=== PATIENT | male | born 1985 | race Caucasian/White ===

== ENCOUNTER 2017-09-18 19:48 | Emergency (ER) | payer SELFPAY ==
[~2017-09-18] VITALS: Ht 188 cm; Wt 90.4 kg
[2017-09-18 20:13] VITALS: BP 153/83
--- NOTE | 2017-09-18 20:17 | NUR ---
LABS ORDERED, URINE SAMPLE COLLECTED. PT RETURNED TO LOBBY
--- NOTE | 2017-09-18 20:34 | NUR ---
pt to ER bed 9
--- NOTE | 2017-09-18 20:35 | NUR ---
32/M CAME IN WITH FAMILY/FRIEND, C/O 11/17 ABD PAIN, X1 DAY. PT REPORTS N/V. PT REPORTS SUBJECTIVE FEVER, AFEBRILE AT THIS TIME. PT REPORTS CHILLS AND BODY ACHES. LBM TODAY, DENIES DIARRHEA; PT SLIGHTLY DIAPHORETIC, SKIN IS INTACT, PINK/WARM/DRY; AAOX4, PERRL, WITH EVEN AND STEADY GAIT; LUNGS CLEAR BL, BREATHING UNLABORED; HR EVEN AND REGULAR, BL PERIPHERAL PULSES PRESENT; BS ACTIVE X4, ABD SOFT, ROUND, SLIGHT TENDERNESS TO EPIGASTRIC AREA, DENIES LOWER QUADRANT TENDERNESS; PT DENIES ANY CP, SOB, OR COUGH AT THIS TIME; PATIENT POSITIONED FOR COMFORT; HOB ELEVATED; BEDRAILS UP X2; BED DOWN.
[2017-09-18 20:58] LABS: BASOPHILS % (AUTO) 0.5 % (0.0-2.0); HEMATOCRIT 49.1 % (36-52); HEMOGLOBIN 16.7 g/dL (12.0-18.0); LYMPHOCYTES # (AUTO) 0.4 K/uL (2.0-11.5); LYMPHOCYTES % (AUTO) 4.2 % (20.5-51.1); MEAN CORPUSCULAR HEMOGLOBIN 31 pg (27-31); MEAN CORPUSCULAR HGB CONC 34 g/dL (33-37); MEAN CORPUSCULAR VOLUME 91.2 fL (80-94); MONOCYTES # (AUTO) 0.3 K/uL (0.8-1.0); MONOCYTES % (AUTO) 2.9 % (1.7-9.3); NEUTROPHILS # (AUTO) 8.7 K/uL (1.8-7.7); NEUTROPHILS % (AUTO) 92.4 % (42.2-75.2); PLATELET COUNT (AUTO) 243 K/uL (140-450); RED BLOOD CELL COUNT(AUTO) 5.38 MIL/uL (4.20-6.10); RED CELL DISTRIBUTION WIDTH 13.5 % (11.6-13.7); WHITE BLOOD COUNT (AUTO) 9.4 K/uL (4.8-10.8)
[2017-09-18 21:04] LABS: APPEARANCE,URINE CLEAR (CLEAR); BILIRUBIN,URINE NEGATIVE (NEGATIVE); BLOOD, URINE NEGATIVE (NEGATIVE); COLOR,URINE YELLOW (YELLOW); LEUKOCYTE ESTERASE ,URINE NEGATIVE (NEGATIVE); NITRITE, URINE NEGATIVE (NEGATIVE); UGLUCOSE NEGATIVE (NEGATIVE)
[2017-09-18 21:14] LABS: RBC,URINE 0-5 (RARE) /HPF (0-5); WBC,URINE NONE SEEN /HPF (0-5)
[2017-09-18 21:19] LABS: ALBUMIN 4.8 g/dL (3.4-5.0); ANION GAP 16.2 (8-16); CARBON DIOXIDE 24.8 mmol/L (21-32); TOTAL BILIRUBIN 0.5 mg/dL (0.0-1.0)
--- NOTE | 2017-09-18 22:04 | NUR ---
Dr. Zhang evaluating patient at bedside.
[2017-09-18] MEDS ORDERED: KETOROLAC 30 MG/ML VIAL IM ONE (22:20)
[2017-09-18] MEDS ORDERED: DICYCLOMINE 20 MG/2 ML VIAL IM ONE (22:20)
[2017-09-18] MEDS ORDERED: ONDANSETRON 4 MG ODT PO ONE (22:20)
[2017-09-18 23:15] VITALS: BP 134/77
--- NOTE | 2017-09-18 23:15 | NUR ---
Patient discharged with v/s stable. Written and verbal after care instructions given and explained. Patient alert, oriented and verbalized understanding of instructions. Ambulatory with steady gait. All questions addressed prior to discharge. ID band removed. Patient advised to follow up with PMD. Rx of JANINE ANN given. Patient educated on indication of medication including possible reaction and side effects. Opportunity to ask questions provided and answered.
== END 2017-09-18 23:15 | disposition home or self-care (01) ==
LOC: MED 19:48
DX: R10.10 Upper abdominal pain, unspecified (principal); R11.2 Nausea with vomiting, unspecified; R42 Dizziness and giddiness; F17.210 Nicotine dependence, cigarettes, uncomplicated
CPT/HCPCS: 36415; 74018; 80053; 81001; 85025; 96372; 99285; J0500; J1885; S0119

== ENCOUNTER 2018-01-30 18:49 | Emergency (ER) | payer MEDICAID ==
[~2018-01-30] VITALS: Ht 190.5 cm; Wt 92.1 kg
[2018-01-30 19:09] VITALS: BP 148/77
--- NOTE | 2018-01-30 19:20 | NUR ---
32/M CAME IN ED, C/O CONSTANT EPIGASTRIC PAIN, NONRADIATING, X12 HRS. PT REPORTS N/V, UNABLE TO EAT. PT REPORTS TAKING MOTRIN WITH LITTLE RELIEF. PT REPORTS CHILLS. PT DENIES FEVER, CP, SOB, DIARRHEA, DYSURIA. LBM TODAY. LUNG SOUNDS CLEAR BL. BS ACTIVE X4, ABD SOFT ROUND SLIGHTLY TENDER IN EPIGASTRIC AREA. AOX4, AMBULATORY, RR EVEN AND UNLABORED. DENIES MED HX, RX.
[2018-01-30] MEDS ORDERED: MORPHINE SULFATE 2 MG/ML SYR IVP ONE (20:45)
[2018-01-30] MEDS ORDERED: ONDANSETRON 4 MG/2 ML VIAL IVP ONE (20:45)
[2018-01-30] MEDS ORDERED: NACL 0.9% 1,000 ML IV SCH (20:45)
[2018-01-30 21:17] LABS: HEMATOCRIT 47.7 % (36-52); HEMOGLOBIN 16.4 g/dL (12.0-18.0); MEAN CORPUSCULAR HEMOGLOBIN 31 pg (27-31); MEAN CORPUSCULAR HGB CONC 34 g/dL (33-37); MEAN CORPUSCULAR VOLUME 89.2 fL (80-94); PLATELET COUNT (AUTO) 222 K/uL (140-450); RED BLOOD CELL COUNT(AUTO) 5.35 MIL/uL (4.20-6.10); RED CELL DISTRIBUTION WIDTH 13.3 % (11.6-13.7); WHITE BLOOD COUNT (AUTO) 10.7 K/uL (4.8-10.8)
[2018-01-30 21:24] LABS: ANION GAP 18.7 (8-16); CARBON DIOXIDE 24.9 mmol/L (21-32); CREATININE 1.1 mg/dL (0.7-1.3); POTASSIUM 3.6 mmol/L (3.5-5.1)
[2018-01-30 21:31] LABS: ALBUMIN 4.7 g/dL (3.4-5.0); TOTAL BILIRUBIN 0.6 mg/dL (0.0-1.0)
[2018-01-30 21:41] LABS: LYMPHOCYTES % (MANUAL) 5 % (20-46); MONOCYTES % (MANUAL) 3 % (5-12)
--- NOTE | 2018-01-30 22:00 | NUR ---
PT RESTING IN BED, REPORTS 5/10 PAIN AND CHILLS, DENIES NAUSEA AT THIS TIME, VSS. ALL NEEDS MET.
[2018-01-30 22:24] LABS: APPEARANCE,URINE CLEAR (CLEAR); BLOOD, URINE NEGATIVE (NEGATIVE); COLOR,URINE AMBER (YELLOW); PH,URINE 6.5 (5.0-9.0); UGLUCOSE NEGATIVE (NEGATIVE)
[2018-01-30 22:25] LABS: BILIRUBIN,URINE NEGATIVE (NEGATIVE); LEUKOCYTE ESTERASE ,URINE NEGATIVE (NEGATIVE); NITRITE, URINE NEGATIVE (NEGATIVE)
--- NOTE | 2018-01-30 23:23 | NUR ---
PENDING DISCHARGE, AWAITING D/C PAPERWORK FROM
[2018-01-31 00:22] VITALS: BP 135/72
== END 2018-01-31 00:22 | disposition home or self-care (01) ==
LOC: MED 18:49
DX: A08.4 Viral intestinal infection, unspecified (principal)
CPT/HCPCS: 36415; 74177; 80053; 81003; 83690; 85025; 96361; 96374; 96375; 99285; J2270; J2405; Q9967; J7030